=== PATIENT | male | born 1990 | race African-American/Black ===

== ENCOUNTER 2017-12-25 00:57 | Emergency (ER) | payer MEDICAID, OTHER ==
[~2017-12-25] VITALS: Ht 167.6 cm; Wt 61.0 kg
[2017-12-25] MEDS ORDERED: LORAZEPAM 2MG/ML CPJ IM STA (01:10)
[2017-12-25] MEDS ORDERED: HALOPERIDOL LACTATE 5MG/ML VIAL IM STA (01:10)
[2017-12-25] MEDS ORDERED: HALOPERIDOL LACTATE 5MG/ML VIAL IM ONE (01:14)
[2017-12-25] MEDS ORDERED: LORAZEPAM 2MG/ML CPJ ONE (01:14)
[2017-12-25 01:29] LABS: BASOPHILS % 0.1 % (0.0-2.0); HEMATOCRIT. 44.2 % (42.0-52.0); HEMOGLOBIN. 14.4 g/dL (14.0-18.0); LYMPHOCYTES % 7.1 % (20.0-50.0); MEAN CORPUSCULAR HEMOGLOBIN 26.3 pg (28.0-32.0); MEAN CORPUSCULAR VOLUME 80.7 fL (80.0-94.0); MEAN PLATELET VOLUME 8.5 fl (7.4-10.4); MONOCYTES % 4.7 % (2.0-8.0); NEUTROPHILS % 88.1 % (40.0-76.0); PLATELET 282 x1000/uL (130-400); RED BLOOD CELL COUNT 5.48 mill/uL (4.7-6.1); RED CELL DISTRIBUTION WIDTH 14.8 % (11.6-14.6)
[2017-12-25 01:36] LABS: CHLORIDE 100 mEq/L (98-107)
[2017-12-25 01:40] LABS: ETHANOL BLOOD < 10 mg/dL
[2017-12-25 02:13] LABS: CLARITY URINE CLEAR (CLEAR); COLOR URINE YELLOW (YELLOW); KETONES URINE TRACE (NEGATIVE); LEUKOCYTE ESTERASE URINE NEGATIVE (NEGATIVE); NITRITE URINE NEGATIVE (NEGATIVE); OCCULT BLOOD URINE NEGATIVE (NEGATIVE); PROTEIN URINE TRACE (NEGATIVE); SPECIFIC GRAVITY URINE 1.032 (1.005-1.030); UROBILINOGEN URINE 0.2 E.U./dL (0.2-1.0)
[2017-12-25 02:24] LABS: *AMPHETAMINES SCREEN URINE PRESUMTIVE POSITIVE (NEGATIVE); *BARBITURATES SCREEN URINE NEGATIVE (NEGATIVE); *BENZODIAZEPINES SCREEN URINE NEGATIVE (NEGATIVE); *COCAINE SCREEN URINE PRESUMTIVE POSITIVE (NEGATIVE); CANNABINOID URINE SCREEN PRESUMTIVE POSITIVE (NEGATIVE); METHADONE URINE SCREEN NEGATIVE (NEGATIVE); OPIATES URINE SCREEN NEGATIVE (NEGATIVE)
[2017-12-25 02:26] LABS: PHENCYCLIDINE URINE SCREEN NEGATIVE (NEGATIVE)
[2017-12-25 03:21] VITALS: BP 155/80
== END 2017-12-25 03:23 | disposition home or self-care (01) ==
LOC: ER 00:57
DX: F15.10 Other stimulant abuse, uncomplicated (principal); F12.10 Cannabis abuse, uncomplicated; F14.10 Cocaine abuse, uncomplicated; R44.0 Auditory hallucinations
CPT/HCPCS: 36415; 80053; 80305; 80307; 80329; 81003; 84443; 85025; 96372; 99284; G0482; J1630; J2060; Z7610

== ENCOUNTER 2017-12-25 05:25 | Emergency (ER) | payer MEDICAID ==
[~2017-12-25] VITALS: Ht 170.2 cm; Wt 82.0 kg
[2017-12-25 05:50] VITALS: BP 111/60
== END 2017-12-25 06:14 | disposition home or self-care (01) ==
LOC: ER 05:25
DX: F14.10 Cocaine abuse, uncomplicated (principal); F12.10 Cannabis abuse, uncomplicated; F15.10 Other stimulant abuse, uncomplicated; R44.0 Auditory hallucinations
CPT/HCPCS: 99283